=== PATIENT | male | born 1960 | race Caucasian/White ===

== ENCOUNTER 2022-05-12 17:52 | Emergency (ER) | payer OTHER, SELFPAY ==
[2022-05-12 17:53] VITALS: BP 161/77; PULSE 96; RESP 15; TEMP 35.8; O2SAT 92; BMI 42.7
--- NOTE | 2022-05-12 18:15 | ED.VIS.DYS ---
HPI <RICKIE Castaneda - Last Filed: 05/12/22 20:14> History of Present Illness Chief Complaint: Cough Narrative Narrative: 61-year-old male states he was cleaning up dirt particles in a shop 4 days ago. He was not wearing a mask and inhaled very fine dirt particles and since then has had a dry cough and intermittent wheezing. He has no history of asthma or COPD. He smokes cigarettes occasionally maybe 2-3 times per week. He denies chest pain but does have dyspnea on exertion. PFSH <RICKIE Castaneda - Last Filed: 05/12/22 20:14> PFSH Medical History no medical history Home Medications albuterol sulfate 90 mcg/actuation aerosol inhaler (Ventolin HFA) 1 - 2 puff inhalation Q4H PRN PRN Wheezing 30 days #6.7 grams 05/12/22 [Rx Last Taken Unknown] prednisone 50 mg tablet 50 mg PO DAILY #4 tabs 05/12/22 [Rx Last Taken Unknown] Allergy/AdvReac Type Severity Reaction Status Date / Time amoxicillin [From Augmentin] Allergy Hives Verified 05/12/22 17:53 clavulanic acid Allergy Hives Verified 05/12/22 17:53 [From Augmentin] Social History Smoking Status: Current some day smoker tobacco type: cigarettes ROS <RICKIE Castaneda - Last Filed: 05/12/22 20:14> ROS ED ROS Narrative Constitutional: Negative for fever, chills, malaise. Eyes: Negative for visual change. ENT: Negative for sore throat, ear pain, rhinorrhea. CVS: Negative for palpitations, chest pain, syncope. Respiratory: Positive for shortness of breath, cough. GI: Negative for abdominal pain, nausea, vomiting. : Negative for dysuria, hematuria or frequency. Neuro: Negative for headache, motor/sensory dysfunction. Skin: Negative for rash, abscess, or wound. Musc: Negative for joint pain, swelling, trauma. Heme: Negative for easy bruising, bleeding, lymphadenopathy. EXAM <RICKIE Castaneda - Last Filed: 05/12/22 20:14> Physical Exam Narrative Exam Narrative: CONST: Patient sitting in no acute distress. EYES: Normal inspection. ENT: Normal inspection, moist mucous membranes. NECK: Normal inspection. RESP: No respiratory distress, mild expiratory wheezing in all lung garcia. CVS: Regular rate and rhythm, no murmur, no gallop. SKIN: Color normal, no rash, warm, dry, intact. EXTREMITIES: Normal appearance, no pedal edema. NEURO: Oriented x4. PSYCH: Normal affect. Const Vital Signs: 05/12/22 17:53 05/12/22 17:59 05/12/22 18:23 Temperature 96.5 F L Temperature Source Temporal Pulse Rate 96 88 Respiratory Rate 15 16 Respiratory Effort Normal Respiratory Depth Respiratory Pattern Normal Blood Pressure 161/77 H Blood Pressure Mean 105 Pulse Ox 92 Oxygen Delivery Method Room Air Oxygen Flow Rate (L/min) 05/12/22 19:08 05/12/22 19:09 05/12/22 19:09 Temperature Temperature Source Pulse Rate 98 Respiratory Rate 20 H Respiratory Effort Short of Breath Respiratory Depth Normal Respiratory Pattern Normal Normal Blood Pressure Blood Pressure Mean Pulse Ox 92 92 Oxygen Delivery Method Nasal Cannula Nasal Cannula Oxygen Flow Rate (L/min) 3 3 05/12/22 19:37 05/12/22 20:23 Temperature Temperature Source Pulse Rate 101 H 89 Respiratory Rate 18 16 Respiratory Effort Respiratory Depth Respiratory Pattern Blood Pressure 143/72 H 148/72 H Blood Pressure Mean 95 Pulse Ox 94 93 Oxygen Delivery Method Nasal Cannula Oxygen Flow Rate (L/min) 3 <Zev Russell MD - Last Filed: 05/12/22 22:22> Physical Exam Const Vital Signs: 05/12/22 17:53 05/12/22 17:59 05/12/22 18:23 Temperature 96.5 F L Temperature Source Temporal Pulse Rate 96 88 Respiratory Rate 15 16 Respiratory Effort Normal Respiratory Depth Respiratory Pattern Normal Blood Pressure 161/77 H Blood Pressure Mean 105 Pulse Ox 92 Oxygen Delivery Method Room Air Oxygen Flow Rate (L/min) 05/12/22 19:08 05/12/22 19:09 05/12/22 19:09 Temperature Temperature Source Pulse Rate 98 Respiratory Rate 20 H Respiratory Effort Short of Breath Respiratory Depth Normal Respiratory Pattern Normal Normal Blood Pressure Blood Pressure Mean Pulse Ox 92 92 Oxygen Delivery Method Nasal Cannula Nasal Cannula Oxygen Flow Rate (L/min) 3 3 05/12/22 19:37 05/12/22 20:23 Temperature Temperature Source Pulse Rate 101 H 89 Respiratory Rate 18 16 Respiratory Effort Respiratory Depth Respiratory Pattern Blood Pressure 143/72 H 148/72 H Blood Pressure Mean 95 Pulse Ox 94 93 Oxygen Delivery Method Nasal Cannula Oxygen Flow Rate (L/min) 3 [facility] <RICKIE Castaneda - Last Filed: 05/12/22 20:14> [facility] Narrative Medical decision making narrative: A few days ago patient was cleaning and inhaled dirt particles and since then has had a dry cough and wheezing. He appears well and nontoxic. He is 92% on room air, otherwise unremarkable vital signs. He speaking in full sentences but does have mild expiratory wheezing in all lung garcia. CXR was obtained and shows no acute process. After a DuoNeb patient feels somewhat improved but has increased wheezing and is satting between 90 to 93% on room air with coughing He was given oral prednisone and a second albuterol treatment. He satting 94% or above but does drop to around 90 with coughing fits. Patient would like to go home which I feel is reasonable. Likely has pneumonitis from inhalation of the dirt particles. He was given an inhaler and prednisone burst with return precautions and discharged in stable condition. Radiography Chest X-Ray - ED: 1 View, Read by ED Physician, Normal, Heart, Lungs, Mediastinum, Bony Structures and No Acute Disease Diagnostic Testing: Clinical Impression(s) from Imaging Studies Chest X-Ray 05/12/22 18:37 IMPRESSION: No radiographic evidence of acute cardiopulmonary disease. Electronically Signed: Dotty Gallegos MD at 19:01 EST Reading Location ID and State: [id number] / Tel , Service support , ED attending interpretation of 1-view chest x-ray shows normal heart size, no acute infiltrate, edema, or effusion. <Zev Russell MD - Last Filed: 05/12/22 22:22> [facility] Narrative Medical decision making narrative: A few days ago patient was cleaning and inhaled dirt particles and since then has had a dry cough and wheezing. He appears well and nontoxic. He is 92% on room air, otherwise unremarkable vital signs. He speaking in full sentences but does have mild expiratory wheezing in all lung garcia. CXR was obtained and shows no acute process as read by the ED physician. After a DuoNeb patient feels somewhat improved but has increased wheezing and is satting between 90 to 93% on room air with coughing He was given oral prednisone and a second albuterol treatment. He satting 94% or above but does drop to around 90 with coughing fits. Patient would like to go home which I feel is reasonable. Likely has pneumonitis from inhalation of the dirt particles. He was given an inhaler and prednisone burst with return precautions and discharged in stable condition. I have personally performed a face to face assessment of the patient and have reviewed the JAMIE Note. I performed a substantive portion of the visit including all aspects of the following. My lee findings include: History is inhaled dust 4 to 5 days ago, now with wheezing Exam is afebrile. Vital signs noted. Moving good amount of air. Positive expiratory wheezing. Medical Decision Making: Aerosols, treatment with steroids. Check chest x-ray. Chest x-ray interpreted by myself shows no acute process. Discharge. Other additions or changes: [None] Radiography Diagnostic Testing: Clinical Impression(s) from Imaging Studies Chest X-Ray 05/12/22 18:37 IMPRESSION: No radiographic evidence of acute cardiopulmonary disease. Electronically Signed: Dotty Gallegos MD at 19:01 [facility] , Discharge Plan Triage Chief Complaint: Cough ED Midlevel Provider: Kiya Alejandro ED Provider: Zev Russell Dx/Rx/DC Orders Clinical Impression: Pneumonitis Instructions: ED Bronchospasm (Adult) Prescriptions: New albuterol sulfate [Ventolin HFA] 90 mcg/actuation HFA aerosol inhaler 1 - 2 puff inhalation Q4H PRN PRN (Reason: Wheezing) 30 Days Qty: 6.7 0RF Rx Instructions: with spacer prednisone 50 mg tablet 50 mg PO DAILY Qty: 4 0RF Primary Care Provider: Alonso Burr Referrals: [facility] Doctor,Out of [Non-Staff] - Activity Restrictions/Additional Instructions: Use the inhaler as needed and take the steroids once daily starting tomorrow 05/13/2022. Follow-up with your doctor. If symptoms worsen despite treatment come back to the ER. Disposition Disposition: Home, Self Care Discharge Date/Time: 05/12/22 20:24
[2022-05-12] MEDS: Ipratropium/Albuterol Sulfate 3 ML AMPUL.NEB INHALATION (18:22)
[2022-05-12 18:23] VITALS: PULSE 88; RESP 16
--- NOTE | 2022-05-12 18:37 | RAD_ITS ---
INDICATION: cough EXAMINATION/TECHNIQUE: X-RAY - XR Chest 1 View COMPARISON: None. FINDINGS: LINES/DEVICES: None. LUNGS: No consolidation, edema or effusion. No pneumothorax. MEDIASTINUM AND CARDIOVASCULAR STRUCTURES: Cardiac silhouette not enlarged. Central airways and mediastinal contour are unremarkable. BONES AND SOFT TISSUES: Unremarkable. RAD/Chest 1 View (Portable) IMPRESSION: No radiographic evidence of acute cardiopulmonary disease. Electronically Signed: Dotty Gallegos MD at 19:01 EST Reading Location ID and State: [id number] / Tel , Service support ,
[2022-05-12] MEDS: predniSONE 20 MG Tablet 60 MG PO (18:58)
[2022-05-12] MEDS: Albuterol 2.5 MG/3 ML VIAL.NEB. INHALATION (19:06)
[2022-05-12 19:08] VITALS: PULSE 98; RESP 20
[2022-05-12 19:09] VITALS: O2SAT 92
[2022-05-12 19:37] VITALS: BP 143/72; PULSE 101; RESP 18; O2SAT 94
[2022-05-12 20:23] VITALS: BP 148/72; PULSE 89; RESP 16; O2SAT 93
== END 2022-05-12 20:24 | disposition home or self-care (01) ==
PROVIDERS: Emergency Provider Emergency Medicine; PCP Family Medicine; Visit Provider Emergency Medicine
DX: J18.9 Pneumonia, unspecified organism (principal); F17.210 Nicotine dependence, cigarettes, uncomplicated
CPT/HCPCS: 71045; 94640; 99251; 99283; G0463